=== PATIENT | female | born 1975 | race African-American/Black ===

== ENCOUNTER 2016-11-02 19:29 | Emergency (ER) | payer OTHER | END 2016-11-02 20:59 | disposition left against medical advice (07) | LOC: ER1 19:29 | DX: Z53.21 Procedure and treatment not carried out due to patient leaving prior to being seen by health care provider (principal) ==

== ENCOUNTER 2022-04-28 11:28 | Emergency (ER) | payer OTHER ==
[~2022-04-28 11:28] MED LIST: DOXYCYCLINE HY100 MG PO; IBU800 MG PO
== END 2022-04-28 16:25 | disposition left against medical advice (07) ==
LOC: ER1 11:28
DX: Z53.21 Procedure and treatment not carried out due to patient leaving prior to being seen by health care provider (principal)

== ENCOUNTER 2022-05-22 01:27 | Emergency (ER) | payer OTHER ==
[2022-05-22] MEDS ORDERED: NAPROSYN500 MG PO (02:19)
== END 2022-05-22 02:31 | disposition home or self-care (01) ==
LOC: ER1 01:27
DX: S46.912A Strain of unspecified muscle, fascia and tendon at shoulder and upper arm level, left arm, initial encounter (principal); I10 Essential (primary) hypertension; Z88.0 Allergy status to penicillin; F17.200 Nicotine dependence, unspecified, uncomplicated; W18.2XXA Fall in (into) shower or empty bathtub, initial encounter; Y92.009 Unspecified place in unspecified non-institutional (private) residence as the place of occurrence of the external cause; Y93.E8 Activity, other personal hygiene
CPT/HCPCS: 73030; 99283